=== PATIENT | male | born 1985 | race Caucasian/White ===

== ENCOUNTER 2019-02-01 20:13 | Emergency (ER) | payer SELFPAY ==
--- NOTE | 2019-02-01 21:37 | EDM.PDOC ---
ED HPI GENERAL MEDICAL PROBLEM - General Chief Complaint: Back Pain or Injury Stated Complaint: BACK PAIN Time Seen by Provider: 02/01/19 20:21 Source of Information: Reports: Patient History Limitations: Reports: No Limitations - History of Present Illness INITIAL COMMENTS - FREE TEXT/NARRATIVE: This is a 33-year-old male. He states over the last couple of weeks he's had a sore area in his lower back just in the crack of the upper buttocks that has gotten very sore and has drained twice purulent drainage and also blood. Most recently it is draining today. When it's not draining it starts getting sore and slightly swollen and then it opens and drains and then he gets relief. He comes to the ER for evaluation. He says he's had this happen some years ago but not consistently or frequently until the last couple of weeks. He denies any fever or chills he denies any other acute symptoms. Lower Back Pain Score (Numeric/FACES): 6 - Related Data Allergies Allergy/AdvReac Type Severity Reaction Status Date / Time No Known Allergies Allergy Verified 02/01/19 20:34 Home Meds: Home Meds . [No Known Home Meds] 02/01/19 [History] Past Medical History - Past Health History Medical/Surgical History: Denies Medical/Surgical History Social & Family History - Tobacco Use Smoking Status *Q: Never Smoker - Caffeine Use Caffeine Use: Reports: Energy Drinks - Recreational Drug Use Recreational Drug Use: No ED ROS GENERAL - Review of Systems Review Of Systems: See Below Constitutional: Denies: Fever, Chills HEENT: Reports: No Symptoms Respiratory: Reports: No Symptoms Cardiovascular: Reports: No Symptoms Endocrine: Reports: No Symptoms GI/Abdominal: Reports: No Symptoms : Reports: No Symptoms Musculoskeletal: Reports: Back Pain Skin: Reports: Other (Pain and drainage upper buttocks crack ) Neurological: Reports: No Symptoms Psychiatric: Reports: No Symptoms Hematologic/Lymphatic: Reports: No Symptoms ED EXAM,LOWER BACK PAIN/INJURY - Physical Exam Exam: See Below Exam Limited By: No Limitations General Appearance: Alert, WD/WN, No Apparent Distress Eye Exam: Bilateral Eye: Normal Inspection Ears: Normal External Exam Nose: Normal Inspection Throat/Mouth: Normal Lips, Normal Voice, No Airway Compromise Head: Normocephalic Neck: Supple Respiratory/Chest: No Respiratory Distress Rectal (Males) Exam: Other (The upper buttocks area does have a small area that appears to be a pilonidal cyst though there is no inflammation there is no swelling noted at this time, I cannot even see where it has been draining. He has mild tenderness on palpation in this region.) Back Exam: Normal Inspection, Full Range of Motion Extremities: Normal Inspection, Normal Range of Motion Neurological: Alert, Normal Mood/Affect Psychiatric: Normal Affect, Normal Mood Skin Exam: Warm, Dry Course - Vital Signs Last Recorded V/S: Last Vital Signs Temp 97.8 F 02/01/19 20:31 Pulse 71 02/01/19 20:31 Resp 16 02/01/19 20:31 BP 152/102 H 02/01/19 20:31 Pulse Ox 97 02/01/19 20:31 - Re-Assessments/Exams Free Text/Narrative Re-Assessment/Exam: 02/01/19 21:33 There is no inflammation or swelling noted and I don't even see any drainage I do not believe antibiotics are needed. I will refer him to a surgeon for follow- up and possible opening of the pilonidal cyst for complete cleanup. Departure - Departure Time of Disposition: 21:33 Disposition: Home, Self-Care 01 Condition: Good Clinical Impression: Pilonidal cyst - Discharge Information *PRESCRIPTION DRUG MONITORING PROGRAM REVIEWED*: Not Applicable *COPY OF PRESCRIPTION DRUG MONITORING REPORT IN PATIENT PRETTY: Not Applicable Instructions: Pilonidal Cyst Referrals: Delma Bennett MD [Physician] - Additional Instructions: Use warm soaks to the area to help it drain, follow-up with the surgeon that I have referred you to by calling her office on Sunday so she can evaluated and see if she needs to open up the cyst any further, take Tylenol or ibuprofen for the soreness, if you feel up to it you can go to work that should not be a problem, return to the ER if needed
== END 2019-02-01 21:45 | disposition home or self-care (01) ==
LOC: JD.ED 20:13
DX: L05.91 Pilonidal cyst without abscess (principal)
CPT/HCPCS: 99282; 99283